=== PATIENT | female | born 1955 | race American Indian/Alaskan Native ===

== ENCOUNTER 2016-04-23 13:45 | Emergency (ER) | payer MEDICAID ==
[2016-04-23 14:25] VITALS: BP 122/73
--- NOTE | 2016-04-23 18:51 | Emergency Department Report ---
ED Rash HPI - HPI Chief Complaint: Skin Rash Stated Complaint: ITCHING Time Seen by Provider: 04/23/16 17:57 Duration: 3 Days Location: Head, Neck, Back, Abdomen, Upper Extremities, Lower Extremities Rash Symptoms: Yes Itching, No Facial Swelling, No Tongue/Oral Swelling, No Breathing Difficulties, No Choking Sensation, No Wheezing/Dyspnea, No Peeling, No Blistering, No Fever, No Lightheaded, No Malaise, No Myalgias Other History: 61-year-old female past medical history hypertension presents with complaint of itchy red rash with small reddish dots arms legs back abdomen and chest wall. Patient states it started on arms and in between fingers and then migrated to the abdomen and back. Denies any fever or chills no recent new medications denies any recent new cosmetics or recent travel. Patient states that rash is very itchy and she has been scratching at it for some time over the last 3 days ED Review of Systems ROS: Stated complaint: ITCHING Other details as noted in HPI Constitutional: denies: chills, fever Eyes: denies: eye pain, eye discharge, vision change ENT: denies: ear pain, throat pain Respiratory: denies: cough, shortness of breath, wheezing Cardiovascular: denies: chest pain, palpitations Endocrine: no symptoms reported Gastrointestinal: denies: abdominal pain, nausea, diarrhea Genitourinary: denies: urgency, dysuria, discharge Musculoskeletal: denies: back pain, joint swelling, arthralgia Skin: rash, lesions, pruritus Neurological: denies: headache, weakness, paresthesias Psychiatric: denies: anxiety, depression Hematological/Lymphatic: denies: easy bleeding, easy bruising ED Past Medical Hx - Past Medical History Hx Hypertension: Yes - Surgical History Additional Surgical History: right hip replacement - Social History Smoking Status: Never Smoker Substance Use Type: None - Medications Home Medications: Home Medications Medication Instructions Recorded Confirmed Last Taken Type Hydrocortisone 1% [Hydrocortisone 1 applicatio TP TID #1 tube 04/23/16 Unknown Rx 1% CREAM] Hydroxyzine HCl 25 mg PO TID PRN #30 tablet 04/23/16 Unknown Rx Permethrin 5% [Acticin 5% CREAM] 1 applicatio TP ONCE #1 tube 04/23/16 Unknown Rx Rash Exam - Exam General: Vital signs noted. No distress. Alert and acting appropriately. HEENT: No Periorbital Edema, No Conjuctival Injection, No Chemosis, No Perioral Edema, No Tongue Edema, No Uvular Edema, No Compromised Airway, No Drooling Lungs: Yes Good Air Exchange (Normal Breath Sounds), No Wheezes, No Ronchi, No Stridor, No Cough, No Labored Respirations, No Retractions, No Use of Accessory Muscles, No Other Abnormal Lung Sounds Heart: Yes Regular, No Murmur Skin: Yes Excoriations, Yes Encrustations Other: Positive: Abdomen Normal, Neurologic Normal, Musculoskeletal Normal ED Course Vital Signs 04/23/16 14:23 Temperature 98.3 F Pulse Rate 94 H Respiratory 20 Rate Blood Pressure 122/73 O2 Sat by Pulse 100 Oximetry ED Medical Decision Making - Medical Decision Making A/P: Pruritic rash, possibly scabies 1-based on distribution and appearance of patient's rash with associated itchiness treat empirically for scabies 2-permethrin cream 3-topical hydrocortisone 4-oral hydroxyzine when necessary for itching, Pepcid when necessary 5- follow-up with primary care doctor Critical care attestation.: If time is entered above; I have spent that time in minutes in the direct care of this critically ill patient, excluding procedure time. ED Disposition Clinical Impression: Scabies, Rash, Pruritic dermatitis Disposition: DISCHARGED TO HOME OR SELFCARE Is pt being admited?: No Does the pt Need Aspirin: No Condition: Stable Instructions: Scabies (ED), Itchy Skin (ED) Prescriptions: Hydrocortisone 1% [Hydrocortisone 1% CREAM] 1 applicatio TP TID #1 tube Hydroxyzine HCl 25 mg PO TID PRN #30 tablet PRN Reason: Itching Permethrin 5% [Acticin 5% CREAM] 1 applicatio TP ONCE #1 tube Referrals: ROXY AMANDA DR [Other] - 3-5 Days FELISA RUDOLPH MD [Staff Physician] - 3-5 Days [facility] [Outside] - 3-5 Days Forms: Work/School Release Form(ED) Time of Disposition: 18:48
== END 2016-04-23 19:01 | disposition home or self-care (01) ==
LOC: ED 13:45
DX: B86 Scabies (principal); L30.8 Other specified dermatitis; I10 Essential (primary) hypertension
CPT/HCPCS: 99282

== ENCOUNTER 2018-08-08 14:45 | Emergency (ER) | payer MEDICAID ==
--- NOTE | 2018-08-08 15:37 | Emergency Department Report ---
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
--- NOTE | 2018-08-08 18:27 | Emergency Department Report ---
- General Chief complaint: Skin/Abscess/Foreign Body Stated complaint: LUMP LEAKING FLUID Time Seen by Provider: 08/08/18 15:35 Source: patient Mode of arrival: Ambulatory Limitations: No Limitations - History of Present Illness Initial comments: Pt is a 63 yo female who presents to the ED with c/o an abscess to the back of the right shoulder that began a week ago. She states that she saw Dr. Dolan, dermatology approximately two weeks ago and was placed on methotrexate for eczema and psoriasis. She states about a week ago she noticed the abscess to the shoulder. She states that two days ago Dr. Dolan, room attendants performed an I&D and purulent drainage was expressed per pt. Packing was not placed. she states she has continued to have pus drainage. the patients states that when he changes the dressing he still is able to get pus from the abscess. She denies any fever. Pt states that her room attendants took her off of the methotrexate. - Related Data Previous Rx's Medication Instructions Recorded Last Taken Type Hydrocortisone 1% [Hydrocortisone 1 applicatio TP TID #1 tube 04/23/16 Unknown Rx 1% CREAM] Permethrin 5% [Acticin 5% CREAM] 1 applicatio TP ONCE #1 tube 04/23/16 Unknown Rx hydrOXYzine HCl [Hydroxyzine HCl] 25 mg PO TID PRN #30 tablet 04/23/16 Unknown Rx cephALEXin [Keflex] 500 mg PO QID 5 Days #20 cap 08/08/18 Unknown Rx Allergies Allergy/AdvReac Type Severity Reaction Status Date / Time No Known Allergies Allergy Verified 08/08/18 14:47 Abscess Boil HPI - HPI Chief Complaint: Skin/Abscess/Foreign Body Stated Complaint: LUMP LEAKING FLUID Time Seen by Provider: 08/08/18 15:35 Home Medications: Previous Rx's Medication Instructions Recorded Last Taken Type Hydrocortisone 1% [Hydrocortisone 1 applicatio TP TID #1 tube 04/23/16 Unknown Rx 1% CREAM] Permethrin 5% [Acticin 5% CREAM] 1 applicatio TP ONCE #1 tube 04/23/16 Unknown Rx hydrOXYzine HCl [Hydroxyzine HCl] 25 mg PO TID PRN #30 tablet 04/23/16 Unknown Rx cephALEXin [Keflex] 500 mg PO QID 5 Days #20 cap 08/08/18 Unknown Rx Allergies/Adverse Reactions: Allergies Allergy/AdvReac Type Severity Reaction Status Date / Time No Known Allergies Allergy Verified 08/08/18 14:47 ED Review of Systems ROS: Stated complaint: LUMP LEAKING FLUID Other details as noted in HPI Comment: All other systems reviewed and negative ED Past Medical Hx - Past Medical History Hx Hypertension: Yes - Surgical History Additional Surgical History: right hip replacement - Social History Smoking Status: Never Smoker Substance Use Type: None - Medications Home Medications: Home Medications Medication Instructions Recorded Confirmed Last Taken Type Hydrocortisone 1% [Hydrocortisone 1 applicatio TP TID #1 tube 04/23/16 Unknown Rx 1% CREAM] Permethrin 5% [Acticin 5% CREAM] 1 applicatio TP ONCE #1 tube 04/23/16 Unknown Rx hydrOXYzine HCl [Hydroxyzine HCl] 25 mg PO TID PRN #30 tablet 04/23/16 Unknown Rx cephALEXin [Keflex] 500 mg PO QID 5 Days #20 cap 08/08/18 Unknown Rx ED Physical Exam - General Limitations: No Limitations General appearance: alert, in no apparent distress - Head Head exam: Present: atraumatic, normocephalic - Eye Eye exam: Present: normal appearance - ENT ENT exam: Present: mucous membranes moist - Neurological Exam Neurological exam: Present: alert, oriented X3 - Psychiatric Psychiatric exam: Present: normal affect, normal mood - Skin Skin exam: Present: warm, other (3 cm area of induration and fluctuance to the posterior surface of the right shoulder, 0.5 cm incision is open and drainage purulent material, no surrounding cellulitis, pt also has a 2 cm area of induration to the right lower back, no fluctuance at this time, no drainage, no surrounding erythema) ED Course Vital Signs 08/08/18 15:35 Temperature 97.6 F Pulse Rate 75 Respiratory 16 Rate Blood Pressure 114/63 - I & D Right Shoulder Type of Procedure: Simple Site: posterior surface of the right shoulder Blade Size: 11 I & D Procedure: betadine prep, sterile drapes applied, sterile dressing applied Progress: area prepped with betadine, sterile dressing applied, 2 cc of 1% lidocaine used, extending the incision by 0.5 cm to make the incision a total of 1 cm, moderate amount of purulent material expressed, irrigated with 30 cc of saline, iodoform gauze placed, pt tolerated well, no complications, bleeding controlled ED Medical Decision Making - Medical Decision Making Pt is a 63 yo female who presents to the ED with c/o an abscess to the back of the right shoulder that began a week ago. She states that she saw Dr. Dolan, dermatology approximately two weeks ago and was placed on methotrexate for eczema and psoriasis. She states about a week ago she noticed the abscess to the shoulder. She states that two days ago Dr. Dolan, room attendants performed an I&D and purulent drainage was expressed per pt. Packing was not placed. she states she has continued to have pus drainage. the patients states that when he changes the dressing he still is able to get pus from the abscess. She denies any fever. Pt states that her room attendants took her off of the methotrexate. vitals are normal. abscess to the posterior surface I&D performed per procedure note. pt placed on abx for small area of induration to the right lower back with no fluctuance. take medication as prescribed. please keep area clean and dry. packing will need to be removed in the next 2 days. may return to the emergency room or be seen by your room attendants Dr. Dolan. no hot tub, pool, or immersing in water. please follow up with Dr. Dolan in the next 2-3 days. return to the emergency room for any new or worsening symptoms. Critical care attestation.: If time is entered above; I have spent that time in minutes in the direct care of this critically ill patient, excluding procedure time. ED Disposition Clinical Impression: Abscess, Encounter for incision and drainage procedure Disposition: TO HOME OR SELFCARE Is pt being admited?: No Does the pt Need Aspirin: No Condition: Stable Instructions: Abscess Incision and Drainage (ED), Abscess (ED) Additional Instructions: take medication as prescribed. please keep area clean and dry. packing will need to be removed in the next 2 days. may return to the emergency room or be seen by your room attendants Dr. Dolan. no hot tub, pool, or immersing in water. please follow up with Dr. Dolan in the next 2-3 days. return to the emergency room for any new or worsening symptoms. Prescriptions: cephALEXin [Keflex] 500 mg PO QID 5 Days #20 cap Referrals: WALTER HAGAN MD [Primary Care Provider] - 2-3 Days KATIE DOLAN MD [Referring] - 2-3 Days Time of Disposition: 19:07 Print Language: ROMANIAN
[2018-08-08] MEDS ORDERED: XYLOCAINE 1% 20 mL INFILTRATI ONE (18:37)
[2018-08-08 19:37] VITALS: BP 135/85
== END 2018-08-08 19:37 | disposition home or self-care (01) ==
LOC: ED 14:45
DX: L02.413 Cutaneous abscess of right upper limb (principal); I10 Essential (primary) hypertension
CPT/HCPCS: 99282

== ENCOUNTER 2018-08-10 07:08 | Emergency (ER) | payer MEDICAID ==
[2018-08-10 07:12] VITALS: BP 120/73
--- NOTE | 2018-08-10 08:41 | Emergency Department Report ---
Abscess Boil HPI - HPI Chief Complaint: Skin/Abscess/Foreign Body Stated Complaint: PACKING REMOVED Time Seen by Provider: 08/10/18 08:07 Severity: Mild History: No Fever, No Pain, No Numbness, No Foreign Body, No Previous History, No Insect Bite HPI: Mrs. Simms is a healthy 63 yo female who presents with abscess check. My colleague evaluated her recently, performed I&D of back abscess. Prescribed cephalexin. Patient has not concerns or symptoms otherwise. No fever. No pain. No previous hx of abscess. However, she has started new medication methotrexate for skin condition. Home Medications: Previous Rx's Medication Instructions Recorded Last Taken Type Hydrocortisone 1% [Hydrocortisone 1 applicatio TP TID #1 tube 04/23/16 Unknown Rx 1% CREAM] Permethrin 5% [Acticin 5% CREAM] 1 applicatio TP ONCE #1 tube 04/23/16 Unknown Rx hydrOXYzine HCl [Hydroxyzine HCl] 25 mg PO TID PRN #30 tablet 04/23/16 Unknown Rx cephALEXin [Keflex] 500 mg PO QID 5 Days #20 cap 08/08/18 Unknown Rx Sulfamethoxazole/Trimethoprim 1 each PO BID 7 Days #14 tablet 08/10/18 Unknown Rx [Bactrim DS TAB] Allergies/Adverse Reactions: Allergies Allergy/AdvReac Type Severity Reaction Status Date / Time No Known Allergies Allergy Verified 08/08/18 14:47 ED Review of Systems ROS: Stated complaint: PACKING REMOVED Other details as noted in HPI Constitutional: denies: fever, malaise Skin: lesions ED Past Medical Hx - Past Medical History Previous Medical History?: Yes Hx Hypertension: Yes - Surgical History Past Surgical History?: Yes Additional Surgical History: right hip replacement - Social History Smoking Status: Never Smoker Substance Use Type: None - Medications Home Medications: Home Medications Medication Instructions Recorded Confirmed Last Taken Type Hydrocortisone 1% [Hydrocortisone 1 applicatio TP TID #1 tube 04/23/16 Unknown Rx 1% CREAM] Permethrin 5% [Acticin 5% CREAM] 1 applicatio TP ONCE #1 tube 04/23/16 Unknown Rx hydrOXYzine HCl [Hydroxyzine HCl] 25 mg PO TID PRN #30 tablet 04/23/16 Unknown Rx cephALEXin [Keflex] 500 mg PO QID 5 Days #20 cap 08/08/18 Unknown Rx Sulfamethoxazole/Trimethoprim 1 each PO BID 7 Days #14 tablet 08/10/18 Unknown Rx [Bactrim DS TAB] ED Abscess Boil Physical Exam - Exam General: Vital signs noted. No distress. Alert and acting appropriately. No surrounding erythema or edema. Front/Back of Body, Lg (Color): 1 - 0.8 cm opening circular right upper back copious purulent thick drainage ED Course Vital Signs 08/10/18 07:11 Pulse Rate 57 L Respiratory 16 Rate Blood Pressure 120/73 O2 Sat by Pulse 98 Oximetry Critical care attestation.: If time is entered above; I have spent that time in minutes in the direct care of this critically ill patient, excluding procedure time. ED Medical Decision Making - Medical Decision Making Approximately 6 mL of copious purulent drainage was expressed from the abscess. Consequently I repacked the wound with 4 cm in length iodoform packing. I advised patient to return in 4 days on Friday. In addition to cephalexin, I added Bactrim to her regimen. I provided a seven-day prescription. The cellul itis described on previous exam has healed. However pus still is prominent. ED Disposition Clinical Impression: Abscess Disposition: DC-01 TO HOME OR SELFCARE Is pt being admited?: No Does the pt Need Aspirin: No Condition: Stable Additional Instructions: Please return on Friday for packing change and skin check. Prescriptions: Sulfamethoxazole/Trimethoprim [Bactrim DS TAB] 1 each PO BID 7 Days #14 tablet
== END 2018-08-10 08:45 | disposition home or self-care (01) ==
LOC: ED 07:08
DX: L02.212 Cutaneous abscess of back [any part, except buttock and flank] (principal); I10 Essential (primary) hypertension; Z96.641 Presence of right artificial hip joint

== ENCOUNTER 2018-08-14 06:56 | Emergency (ER) | payer MEDICAID ==
[2018-08-14 07:01] VITALS: BP 105/77
--- NOTE | 2018-08-14 08:17 | Emergency Department Report ---
ED General Adult HPI - General Chief complaint: Laceration/Recheck/Suture Stated complaint: PACKING CHANGED Time Seen by Provider: 08/14/18 08:00 Source: patient Mode of arrival: Ambulatory Limitations: No Limitations - History of Present Illness Initial comments: Patient is a 63-year-old Female who is presenting for wound check. Patient had an abscess on her right upper back. Patient initially was on Keflex however 3 days ago Bactrim was added and her wound was repacked. Patient states she feels as though the Bactrim is helping in her pain is subsided considerably. Patient does not try to change dressing. Patient denies any fevers chills nausea vomiting. - Related Data Previous Rx's Medication Instructions Recorded Last Taken Type Hydrocortisone 1% [Hydrocortisone 1 applicatio TP TID #1 tube 04/23/16 Unknown Rx 1% CREAM] Permethrin 5% [Acticin 5% CREAM] 1 applicatio TP ONCE #1 tube 04/23/16 Unknown Rx hydrOXYzine HCl [Hydroxyzine HCl] 25 mg PO TID PRN #30 tablet 04/23/16 Unknown Rx cephALEXin [Keflex] 500 mg PO QID 5 Days #20 cap 08/08/18 Unknown Rx Sulfamethoxazole/Trimethoprim 1 each PO BID 3 Days #6 tablet 08/14/18 Unknown Rx [Bactrim DS TAB] Allergies Allergy/AdvReac Type Severity Reaction Status Date / Time No Known Allergies Allergy Verified 08/08/18 14:47 ED Review of Systems ROS: Stated complaint: PACKING CHANGED Other details as noted in HPI Comment: All other systems reviewed and negative ED Past Medical Hx - Past Medical History Previous Medical History?: Yes Hx Hypertension: Yes - Surgical History Past Surgical History?: Yes Additional Surgical History: right hip replacement - Social History Smoking Status: Former Smoker Substance Use Type: None - Medications Home Medications: Home Medications Medication Instructions Recorded Confirmed Last Taken Type Hydrocortisone 1% [Hydrocortisone 1 applicatio TP TID #1 tube 04/23/16 Unknown Rx 1% CREAM] Permethrin 5% [Acticin 5% CREAM] 1 applicatio TP ONCE #1 tube 04/23/16 Unknown Rx hydrOXYzine HCl [Hydroxyzine HCl] 25 mg PO TID PRN #30 tablet 04/23/16 Unknown Rx cephALEXin [Keflex] 500 mg PO QID 5 Days #20 cap 08/08/18 Unknown Rx Sulfamethoxazole/Trimethoprim 1 each PO BID 3 Days #6 tablet 08/14/18 Unknown Rx [Bactrim DS TAB] ED Physical Exam - General Limitations: No Limitations General appearance: alert, in no apparent distress - Head Head exam: Present: atraumatic, normocephalic - Eye Eye exam: Present: normal appearance - ENT ENT exam: Present: mucous membranes moist - Neck Neck exam: Present: normal inspection - Respiratory Respiratory exam: Absent: normal lung sounds bilaterally, respiratory distress - GI/Abdominal GI/Abdominal exam: Present: soft. Absent: distended - Extremities Exam Extremities exam: Present: normal inspection - Back Exam Back exam: Present: normal inspection - Neurological Exam Neurological exam: Present: alert, oriented X3 - Psychiatric Psychiatric exam: Present: normal affect, normal mood - Skin Skin exam: Present: warm, dry, intact, normal color, other (patient has a dressing on a wound to the right upper back. Dressing was removed there was a iodoform gauze packing. This is removed as well. The actual incision site is open. There is minimal purulent drainage at this time. Very minimal tenderness and no surrounding erythema.). Absent: rash ED Course Vital Signs 08/14/18 07:00 Temperature 98.8 F Pulse Rate 82 Respiratory 18 Rate Blood Pressure 105/77 O2 Sat by Pulse 96 Oximetry ED Medical Decision Making - Medical Decision Making Patient was given 7 day course of Bactrim. That will extend this for 3 days to make a total of 10 days. Patient is improving considerably. Patient does not need repeat packing at this time. Critical care attestation.: If time is entered above; I have spent that time in minutes in the direct care of this critically ill patient, excluding procedure time. ED Disposition Clinical Impression: Abscess Disposition: DC-01 TO HOME OR SELFCARE Is pt being admited?: No Does the pt Need Aspirin: No Condition: Stable Referrals: VIOLET HARRINGTON MD [Primary Care Provider] - 3-5 Days Time of Disposition: 08:17
== END 2018-08-14 08:40 | disposition home or self-care (01) ==
LOC: ED 06:56
DX: Z48.01 Encounter for change or removal of surgical wound dressing (principal)